=== PATIENT | male | born 1965 | race Caucasian/White ===

== ENCOUNTER 2020-03-02 16:55 | Observation (INO) ==
[2020-03-02] MEDS ORDERED: *HR* LORazepam 2 MG/ML VIAL IVP PRN ×2 (20:13)
[2020-03-02] MEDS ORDERED: Nitroglycerin 0.4 MG TAB.SUBL SL PRN (20:13)
[2020-03-02] MEDS: *HR* LORazepam 2 MG/ML VIAL IVP PRN (20:39)
[2020-03-02] MEDS: Thiamine (B-1) 100 MG, Folic Acid 1 MG, MVI, adult with vitamin K 10 ML in 0.9 % Sodi... IVPB SCH (21:43)
[2020-03-02] MEDS ORDERED: Ipratropium/Albuterol Neb 3 ML IH PRN (22:34)
[2020-03-02] MEDS ORDERED: Nicotine 14 MG PATCH.TD24 TD SCH (22:45)
[2020-03-03 03:47] LABS: Basophils # 0.1 K/mcL (0.0-0.2); Basophils % 0.9 %; Eosinophils # 0.1 K/mcL (0.0-0.6); Eosinophils % 1.4 %; Hematocrit 45.5 % (37.5-50.1); Hemoglobin 15.4 g/dL (12.9-16.9); Immature Granulocytes % 0.2 % (0-4); Lymphocytes # 1.6 K/mcL (0.6-4.6); Mean Corpuscular HGB Conc 33.8 g/dL (31.6-35.5); Mean Corpuscular Hemoglobin 33.7 pg (28.0-33.3); Mean Corpuscular Volume 99.6 fL (83.0-100.0); Mean Platelet Volume 8.9 fL (9.4-12.4); Monocytes # 0.9 K/mcL (0.0-1.3); Monocytes % 15.9 %; Platelet Count 156 K/mcL (140-400); Red Blood Count 4.57 M/mcL (4.19-5.50); Red Cell Distribution Width 13.9 % (11.5-14.5); Segmented Neutrophils % 53.6 %; White Blood Count 5.6 K/mcL (4.3-11.1)
[2020-03-03 03:51] LABS: INR 1.1; Prothrombin Time 12.8 Seconds (9.4-12.1)
[2020-03-03 05:04] LABS: BUN/Creatinine Ratio 14 (6-26); Blood Urea Nitrogen 7 mg/dL (6-20); Calcium 8.1 mg/dL (8.6-10.3); Carbon Dioxide 33 mEq/L (23-29); Chloride 98 mEq/L (98-107); Glucose 72 mg/dL (70-105); Osmolality,Calculated 279 (280-300); Sodium 136 mEq/L (136-145); eGFR For African Americans > 60 (> 60); eGFR For Non-African Americans > 60 (> 60)
[2020-03-03 05:05] LABS: Troponin I < 0.03 ng/mL (< 0.04)
[2020-03-03] MEDS ORDERED: Regadenoson 0.4 MG/5 ML SYRINGE IVP ONE (07:44)
[2020-03-03] MEDS ORDERED: Doxycycline 100 MG in 0.9 % Sodium Chloride Mini Bag 100 ML IVPB SCH ×2 (10:56→11:00)
[2020-03-03] MEDS ORDERED: Nicotine 14 MG PATCH.TD24 TD ONE (11:21)
[2020-03-03 11:23] LABS: Chol/HDL Ratio 1.6 (0-4.9); Cholesterol 137 mg/dL (< 200); HDL Cholesterol 86 mg/dL (40-59); LDL Cholesterol,Calculated 45 mg/dL (< 100); Triglycerides 28 mg/dL (< 150)
[2020-03-03] MEDS: Aspirin Enteric Coated 325 MG Tablet PO SCH (11:35)
[2020-03-03] MEDS: Ipratropium/Albuterol Neb 3 ML IH SCH ×4 (12:16→23:47)
[2020-03-03] MEDS: lisinopriL 5 MG TABLET PO SCH (12:40)
[2020-03-03] MEDS: predniSONE 20 MG TABLET PO SCH (12:40)
[2020-03-03] MEDS: Thiamine (B-1) 100 MG, Folic Acid 1 MG, MVI, adult with vitamin K 10 ML in 0.9 % Sodi... IVPB SCH (17:17)
[2020-03-03] MEDS: *HR* Heparin 5,000 UNIT/ML VIAL SQ SCH (17:41)
[2020-03-03] MEDS: Doxycycline 100 MG CAPSULE PO SCH (20:36)
[2020-03-03] MEDS: *HR* LORazepam 2 MG/ML VIAL IVP PRN (23:26)
[2020-03-04 02:40] LABS: Basophils % 0.2 %; Hematocrit 44.1 % (37.5-50.1); Hemoglobin 15.4 g/dL (12.9-16.9); Immature Granulocytes % 0.2 % (0-4); Lymphocytes % 15.1 %; Mean Corpuscular HGB Conc 34.9 g/dL (31.6-35.5); Mean Corpuscular Hemoglobin 34.9 pg (28.0-33.3); Mean Platelet Volume 9.5 fL (9.4-12.4); Monocytes # 0.6 K/mcL (0.0-1.3); Monocytes % 9.6 %; Neutrophils # 4.8 K/mcL (1.6-8.9); Platelet Count 152 K/mcL (140-400); Red Blood Count 4.41 M/mcL (4.19-5.50); Red Cell Distribution Width 13.7 % (11.5-14.5); Segmented Neutrophils % 74.9 %; White Blood Count 6.4 K/mcL (4.3-11.1)
[2020-03-04 02:54] LABS: BUN/Creatinine Ratio 17 (6-26); Blood Urea Nitrogen 8 mg/dL (6-20); Calcium 8.8 mg/dL (8.6-10.3); Carbon Dioxide 30 mEq/L (23-29); Chloride 98 mEq/L (98-107); Glucose 154 mg/dL (70-105); Magnesium 1.9 mg/dL (1.6-2.6); Osmolality,Calculated 275 (280-300); Phosphorous 3.3 mg/dL (2.7-4.5); Potassium 3.7 mEq/L (3.5-5.1); Sodium 132 mEq/L (136-145); eGFR For African Americans > 60 (> 60); eGFR For Non-African Americans > 60 (> 60)
[2020-03-04] MEDS: Ipratropium/Albuterol Neb 3 ML IH SCH ×3 (03:24→11:17)
[2020-03-04] MEDS: *HR* Heparin 5,000 UNIT/ML VIAL SQ SCH (05:25)
[2020-03-04] MEDS: predniSONE 20 MG TABLET PO SCH (08:00)
[2020-03-04] MEDS: Aspirin Enteric Coated 325 MG Tablet PO SCH (08:00)
[2020-03-04] MEDS: Doxycycline 100 MG CAPSULE PO SCH (08:00)
[2020-03-04] MEDS: lisinopriL 5 MG TABLET PO SCH (08:01)
[2020-03-04] MEDS: *HR* LORazepam 2 MG/ML VIAL IVP PRN (08:11)
[2020-03-04] MEDS ORDERED: Nicotine 21 MG PATCH.TD24 TD SCH (09:00)
[2020-03-04 11:05] VITALS: BP 113/70
== END 2020-03-04 15:53 | disposition home or self-care (01) ==
LOC: 3BNU → SUATTDRO 18:39 → 3BNU 03-03 12:06 → UNDODISOB 03-04 13:19
PROVIDERS: ADMIT Internal Medicine; ATTEND Internal Medicine

== ENCOUNTER 2020-03-19 18:32 | Inpatient (IN) ==
[2020-03-19 19:37] LABS: Basophils % 0.3 %; Eosinophils % 0.2 %; Hematocrit 43.6 % (37.5-50.1); Hemoglobin 15.2 g/dL (12.9-16.9); Immature Granulocytes % 0.5 % (0-4); Lymphocytes % 30.7 %; Mean Corpuscular HGB Conc 34.9 g/dL (31.6-35.5); Mean Corpuscular Hemoglobin 33.7 pg (28.0-33.3); Mean Corpuscular Volume 96.7 fL (83.0-100.0); Mean Platelet Volume 9.2 fL (9.4-12.4); Monocytes # 0.6 K/mcL (0.0-1.3); Monocytes % 9.8 %; Neutrophils # 3.8 K/mcL (1.6-8.9); Platelet Count 155 K/mcL (140-400); Red Blood Count 4.51 M/mcL (4.19-5.50); Red Cell Distribution Width 13.4 % (11.5-14.5); Segmented Neutrophils % 58.5 %; White Blood Count 6.5 K/mcL (4.3-11.1)
[2020-03-19 19:42] LABS: INR 0.9; Prothrombin Time 10.5 Seconds (9.4-12.1)
[2020-03-19 19:44] LABS: Activated Partial Thrombo Time 31.4 Seconds (26.0-36.0)
[2020-03-19 19:58] LABS: Alanine Aminotransferase 51 Units/L (7-52); Albumin 4.2 g/dL (3.5-5.7); Albumin/Globulin Ratio 1.6 (1.1-2.2); Alkaline Phosphatase 67 Units/L (34-104); Aspartate Amino Transferase 60 Units/L (13-39); BUN/Creatinine Ratio 7 (6-26); Bilirubin,Direct 0.2 mg/dL (0.0-0.2); Bilirubin,Indirect 0.5 mg/dL (0.0-1.0); Bilirubin,Total 0.7 mg/dL (0.3-1.0); Blood Urea Nitrogen 3 mg/dL (6-20); C-Reactive Protein 24 mg/L (Less than 10); Calcium 8.6 mg/dL (8.6-10.3); Carbon Dioxide 29 mEq/L (23-29); Chloride 92 mEq/L (98-107); Globulin 2.7 g/dL (2.4-3.5); Glucose 92 mg/dL (70-105); Lactate Dehydrogenase 140 Units/L (140-271); Magnesium 1.9 mg/dL (1.6-2.6); Osmolality,Calculated 270 (280-300); Phosphorous 3.6 mg/dL (2.7-4.5); Potassium 3.8 mEq/L (3.5-5.1); Sodium 132 mEq/L (136-145); Total Protein 6.9 g/dL (6.4-8.9); eGFR For African Americans > 60 (> 60); eGFR For Non-African Americans > 60 (> 60)
[2020-03-19 19:59] LABS: Troponin I < 0.03 ng/mL (< 0.04)
[2020-03-19 20:15] LABS: Ferritin 634 ng/mL (20-250)
[2020-03-19] MEDS ORDERED: MethylPREDNISolone 40 MG/ML VIAL IVP STA (20:22)
[2020-03-19 20:25] LABS: ABG Base Excess 4 mEq/L (-2 to 3); ABG HCO3 29 mEq/L (21-27); ABG Oxygen Saturation 92 % (95-98); ABG PCO2 47 mmHg (35-45); ABG PH 7.41 pH Units (7.32-7.45); ABG PO2 63 mmHg (85-104); ABG TCO2 31 mEq/L (20-26)
[2020-03-19] MEDS ORDERED: *HR* LORazepam 2 MG/ML VIAL IVP ONE (21:23)
[2020-03-19 22:04] LABS: Adenovirus Not Detected (Not Detect); Coronavirus 229E Not Detected (Not Detect); Coronavirus HKU1 Not Detected (Not Detect); Coronavirus NL63 Not Detected (Not Detect); Coronavirus OC43 Not Detected (Not Detect); Human Metapneumovirus Not Detected (Not Detect); Human Rhinovirus/Enterovirus Not Detected (Not Detect); Influenza A Subtype 2009 H1 Not Detected (Not Detect)
[2020-03-19 22:05] LABS: Bordetella Pertussis Not Detected (Not Detect); Chlamydophila pneumoniae Not Detected (Not Detect); Influenza B Not Detected (Not Detect); Mycoplasma pneumoniae Not Detected (Not Detect); Parainfluenza Virus 1 Not Detected (Not Detect); Parainfluenza Virus 2 Not Detected (Not Detect); Parainfluenza Virus 3 Not Detected (Not Detect); Parainfluenza Virus 4 Not Detected (Not Detect); Respiratory Syncytial Virus Not Detected (Not Detect)
[2020-03-19] MEDS ORDERED: Naloxone 0.4 MG/ML INJ IVP PRN (23:00)
[2020-03-19] MEDS ORDERED: *HR* LORazepam 2 MG/ML VIAL IVP PRN (23:02)
[2020-03-20] MEDS: Thiamine (B-1) 100 MG, Folic Acid 1 MG, MVI, adult with vitamin K 10 ML in 0.9 % Sodi... IVPB SCH ×2 (00:23→17:23)
[2020-03-20] MEDS: Pantoprazole 40 MG VIAL IVP SCH ×2 (04:04→17:24)
[2020-03-20] MEDS: *HR* Heparin 5,000 UNIT/ML VIAL SQ SCH ×2 (06:47→17:24)
[2020-03-20 06:58] LABS: Hematocrit 42.8 % (37.5-50.1); Hemoglobin 15.2 g/dL (12.9-16.9); Mean Corpuscular HGB Conc 35.5 g/dL (31.6-35.5); Mean Corpuscular Hemoglobin 35.1 pg (28.0-33.3); Mean Corpuscular Volume 98.8 fL (83.0-100.0); Mean Platelet Volume 9.3 fL (9.4-12.4); Platelet Count 152 K/mcL (140-400); Red Blood Count 4.33 M/mcL (4.19-5.50); Red Cell Distribution Width 13.3 % (11.5-14.5)
[2020-03-20 07:16] LABS: Alanine Aminotransferase 44 Units/L (7-52); Albumin/Globulin Ratio 1.5 (1.1-2.2); Alkaline Phosphatase 64 Units/L (34-104); Aspartate Amino Transferase 43 Units/L (13-39); BUN/Creatinine Ratio 10 (6-26); Bilirubin,Total 0.7 mg/dL (0.3-1.0); Blood Urea Nitrogen 4 mg/dL (6-20); Calcium 8.6 mg/dL (8.6-10.3); Carbon Dioxide 32 mEq/L (23-29); Chloride 97 mEq/L (98-107); Globulin 2.6 g/dL (2.4-3.5); Glucose 156 mg/dL (70-105); Osmolality,Calculated 278 (280-300); Potassium 4.3 mEq/L (3.5-5.1); Sodium 134 mEq/L (136-145); Total Protein 6.6 g/dL (6.4-8.9); Troponin I < 0.03 ng/mL (< 0.04); eGFR For African Americans > 60 (> 60); eGFR For Non-African Americans > 60 (> 60)
[2020-03-20] MEDS: lisinopriL 5 MG TABLET PO SCH (09:08)
[2020-03-20] MEDS: Aspirin Enteric Coated 325 MG Tablet PO SCH (09:08)
[2020-03-20] MEDS ORDERED: Albuterol 2.5 MG/3 ML NEBULIZER IH PRN (10:15)
[2020-03-20] MEDS: Albuterol 2.5 MG/3 ML NEBULIZER IH SCH ×4 (11:29→23:37)
[2020-03-20] MEDS: Azithromycin 500 MG in 0.9 % Sodium Chloride 250 ML IVPB SCH ×2 (12:16→14:05)
[2020-03-20] MEDS: *HR* LORazepam 2 MG/ML VIAL IVP PRN ×3 (13:03→23:12)
[2020-03-20] MEDS: Nicotine 21 MG PATCH.TD24 TD SCH (13:03)
[2020-03-20] MEDS: MethylPREDNISolone 40 MG/ML VIAL IVP SCH (23:11)
[2020-03-21] MEDS: Albuterol 2.5 MG/3 ML NEBULIZER IH SCH ×6 (03:33→23:45)
[2020-03-21] MEDS: *HR* LORazepam 2 MG/ML VIAL IVP PRN ×5 (03:48→18:12)
[2020-03-21 06:30] LABS: VBG HCO3 31 mEq/L (21-27); VBG PCO2 48 mmHg (41-51); VBG PH 7.42 pH Units (7.32-7.42); VBG PO2 81 mmHg (25-50)
[2020-03-21 06:32] LABS: Hematocrit 42.6 % (37.5-50.1); Hemoglobin 14.8 g/dL (12.9-16.9); Immature Granulocytes % 0.2 % (0-4); Lymphocytes # 0.3 K/mcL (0.6-4.6); Lymphocytes % 3.3 %; Mean Corpuscular HGB Conc 34.7 g/dL (31.6-35.5); Mean Corpuscular Hemoglobin 34.6 pg (28.0-33.3); Mean Corpuscular Volume 99.5 fL (83.0-100.0); Monocytes # 0.2 K/mcL (0.0-1.3); Monocytes % 2.4 %; Neutrophils # 8.2 K/mcL (1.6-8.9); Platelet Count 132 K/mcL (140-400); Red Blood Count 4.28 M/mcL (4.19-5.50); Red Cell Distribution Width 13.4 % (11.5-14.5); Segmented Neutrophils % 94.1 %; White Blood Count 8.7 K/mcL (4.3-11.1)
[2020-03-21] MEDS: *HR* Heparin 5,000 UNIT/ML VIAL SQ SCH ×2 (06:39→18:11)
[2020-03-21] MEDS: Pantoprazole 40 MG VIAL IVP SCH ×2 (06:40→18:11)
[2020-03-21 07:37] LABS: BUN/Creatinine Ratio 17 (6-26); Blood Urea Nitrogen 8 mg/dL (6-20); Calcium 8.5 mg/dL (8.6-10.3); Carbon Dioxide 29 mEq/L (23-29); Chloride 93 mEq/L (98-107); Glucose 184 mg/dL (70-105); Magnesium 1.8 mg/dL (1.6-2.6); Osmolality,Calculated 271 (280-300); Potassium 3.9 mEq/L (3.5-5.1); Sodium 129 mEq/L (136-145); eGFR For African Americans > 60 (> 60); eGFR For Non-African Americans > 60 (> 60)
[2020-03-21] MEDS: MethylPREDNISolone 40 MG/ML VIAL IVP SCH ×2 (08:19→21:59)
[2020-03-21] MEDS: Aspirin Enteric Coated 325 MG Tablet PO SCH (08:19)
[2020-03-21] MEDS: Nicotine 21 MG PATCH.TD24 TD SCH (08:19)
[2020-03-21] MEDS: lisinopriL 5 MG TABLET PO SCH (08:20)
[2020-03-21] MEDS ORDERED: 0.9 % Sodium Chloride 1,000 ML IVC SCH (08:30)
[2020-03-21] MEDS: Azithromycin 500 MG in 0.9 % Sodium Chloride 250 ML IVPB SCH (12:24)
[2020-03-21] MEDS ORDERED: 0.9 % Sodium Chloride 250 ML ONE (12:32)
[2020-03-21] MEDS: Thiamine (B-1) 100 MG, Folic Acid 1 MG, MVI, adult with vitamin K 10 ML in 0.9 % Sodi... IVPB SCH (18:12)
[2020-03-22] MEDS: *HR* LORazepam 2 MG/ML VIAL IVP PRN ×4 (03:25→22:44)
[2020-03-22] MEDS: Albuterol 2.5 MG/3 ML NEBULIZER IH SCH ×2 (03:30→08:15)
[2020-03-22] MEDS: *HR* Heparin 5,000 UNIT/ML VIAL SQ SCH ×2 (06:39→17:00)
[2020-03-22] MEDS: Pantoprazole 40 MG VIAL IVP SCH ×2 (06:39→17:00)
[2020-03-22] MEDS: Nicotine 21 MG PATCH.TD24 TD SCH (07:49)
[2020-03-22] MEDS ORDERED: Albuterol 2.5 MG/3 ML NEBULIZER IH PRN (08:15)
[2020-03-22] MEDS: Aspirin Enteric Coated 325 MG Tablet PO SCH (08:40)
[2020-03-22] MEDS: lisinopriL 5 MG TABLET PO SCH (08:41)
[2020-03-22] MEDS: MethylPREDNISolone 40 MG/ML VIAL IVP SCH ×2 (08:41→20:25)
[2020-03-22 10:17] LABS: BUN/Creatinine Ratio 14 (6-26); Blood Urea Nitrogen 9 mg/dL (6-20); Carbon Dioxide 26 mEq/L (23-29); Chloride 97 mEq/L (98-107); Glucose 168 mg/dL (70-105); Osmolality,Calculated 275 (280-300); Potassium 4.8 mEq/L (3.5-5.1); Sodium 131 mEq/L (136-145); eGFR For African Americans > 60 (> 60); eGFR For Non-African Americans > 60 (> 60)
[2020-03-22] MEDS: Azithromycin 500 MG in 0.9 % Sodium Chloride 250 ML IVPB SCH (10:17)
[2020-03-22] MEDS: Ipratropium Neb 0.5 MG NEBULIZER IH SCH ×4 (10:52→23:36)
[2020-03-23 02:16] LABS: BUN/Creatinine Ratio 27 (6-26); Blood Urea Nitrogen 13 mg/dL (6-20); Calcium 9.4 mg/dL (8.6-10.3); Carbon Dioxide 30 mEq/L (23-29); Chloride 92 mEq/L (98-107); Glucose 165 mg/dL (70-105); Osmolality,Calculated 270 (280-300); Potassium 3.9 mEq/L (3.5-5.1); Sodium 128 mEq/L (136-145); eGFR For African Americans > 60 (> 60); eGFR For Non-African Americans > 60 (> 60)
[2020-03-23] MEDS: Ipratropium Neb 0.5 MG NEBULIZER IH SCH ×6 (03:32→23:55)
[2020-03-23] MEDS: Pantoprazole 40 MG VIAL IVP SCH (05:17)
[2020-03-23] MEDS: *HR* Heparin 5,000 UNIT/ML VIAL SQ SCH ×2 (05:17→18:36)
[2020-03-23] MEDS: lisinopriL 5 MG TABLET PO SCH (07:37)
[2020-03-23] MEDS: MethylPREDNISolone 40 MG/ML VIAL IVP SCH (07:37)
[2020-03-23] MEDS: Aspirin Enteric Coated 325 MG Tablet PO SCH (07:37)
[2020-03-23] MEDS: Nicotine 21 MG PATCH.TD24 TD SCH (07:38)
[2020-03-23] MEDS: Azithromycin 500 MG in 0.9 % Sodium Chloride 250 ML IVPB SCH (11:20)
[2020-03-23] MEDS: Azithromycin 250 MG TABLET PO SCH (11:49)
[2020-03-23] MEDS ORDERED: Melatonin 3 MG TABLET PO PRN (22:51)
[2020-03-23] MEDS ORDERED: Melatonin 3 MG TABLET PO ONE (22:53)
[2020-03-24] MEDS: Ipratropium Neb 0.5 MG NEBULIZER IH SCH ×3 (03:27→11:00)
[2020-03-24] MEDS: *HR* Heparin 5,000 UNIT/ML VIAL SQ SCH (04:51)
[2020-03-24 07:00] VITALS: BP 132/90
[2020-03-24] MEDS ORDERED: predniSONE 20 MG TABLET PO SCH (09:00)
[2020-03-24] MEDS: Azithromycin 250 MG TABLET PO SCH (09:15)
[2020-03-24] MEDS: Aspirin Enteric Coated 325 MG Tablet PO SCH (09:15)
[2020-03-24] MEDS: lisinopriL 5 MG TABLET PO SCH (09:16)
[2020-03-24] MEDS: Nicotine 21 MG PATCH.TD24 TD SCH (09:16)
== END 2020-03-24 15:07 | disposition home or self-care (01) | DRG 140 ==
LOC: 2ANU 18:32 → EMEROOARM 18:32 → SUATTDRO 22:15 → 2ANU 22:51
PROVIDERS: ADMIT Family Medicine; ATTEND Internal Medicine